=== PATIENT | female | born 1940 | race Caucasian/White ===

== ENCOUNTER → 2024-01-21 15:14 | Outpatient (REF) | payer OTHER, SELFPAY | LOC: HWWDC 15:14 | PROVIDERS: ATTENDING PHYSICIAN Obstetrics & Gynecology; FAMILY PHYSICIAN Family Medicine | DX: Z12.31 Encounter for screening mammogram for malignant neoplasm of breast (principal) | CPT/HCPCS: 77063; 77067 ==

== ENCOUNTER 2024-06-04 08:22 | Inpatient (IN) | payer OTHER, SELFPAY ==
--- NOTE | 2024-04-30 10:37 | CM ---
Addendum entered by Meredith Houser 06/04/24 08:21:
Patient has obtained a rolling walekr and commode.
Original Note:
Patient is scheduled for an elective R TKR on 06/04/24. Spoke with patient prior to surgery via telephone. Introduced role of Orthopedic Navigator. Patient reports that she lives alone in a an independent living apartment at [facility]. She currently
functions independently and uses a cane. She has no other DME. She has never had VN services. PCP is Dr. Yelena Martinez.
Discussed orthopedic program and post surgical plans. Reviewed anticipated length of stay and that goal is for her to return home at discharge. Also reviewed outpatient PT. Patient is in agreement with tentative plan and will go directly to
outpatient PT at [facility]. Her brother will be staying with her when she first goes home.
Patient will complete online education.
Plan: Orthopedic Navigator will remain available to assist with the care of patient and will reassess discharge needs after surgery.
[2024-05-11 12:18] VITALS: BMI 34.1
[2024-05-11 13:40] LABS: Hematocrit 43.4 % (37.0-47.0); Hemoglobin 14.5 g/dL (12.0-16.0); Mean Corp Hgb Conc. 33.4 g/dL (33.0-37.0); Mean Corpuscular Volume 95.8 fL (81.0-99.0); Mean Platelet Volume 11.2 fL (7.4-10.4); Platelet Count 219 10^3/uL (130-400); Red Blood Cell Count 4.53 10^6/uL (4.20-5.40); Red Cell Dist. Width 12.9 % (11.5-14.5); White Blood Cell Count 9.3 10^3/uL (4.8-10.8)
[2024-05-11 14:12] LABS: ALT (SGPT) 18 U/L (0-35); AST (SGOT) 22 U/L (14-36); Albumin 4.6 g/dl (3.5-5.0); Alkaline Phosphatase 60 U/L (38-126); Blood Urea Nitrogen 21 mg/dl (7-17); Calcium 9.8 mg/dl (8.4-10.2); Carbon Dioxide 26 mmol/L (22-30); Chloride 104 mmol/L (98-107); Estimated Creatinine Clearance 77 ml/min; Glucose 122 mg/dl (70-99); Potassium 4.4 mmol/L (3.5-5.1); Sodium 139 mmol/L (135-145); Total Bilirubin 0.6 mg/dl (0.2-1.3); Total Protein 6.8 g/dl (6.3-8.2); eGFR > 60.00
[2024-05-12 09:30] LABS: Glycohemoglobin (HgbA1c) 6.3 % (4.0-5.6)
[2024-06-01 11:35] VITALS: BMI 34.1
[2024-06-04] VITALS (11 sets, daily range): BP systolic 114–168; BP diastolic 57–70; PULSE 62–70; O2SAT 94; BMI 34.1
--- NOTE | 2024-06-04 09:18 | CM ---
Reviewed chart. Patient admitted as planned for elective R TKR. Met with patient at bedside. Confirmed information previously obtained for assessment. Also discussed discharge plans. The plan is for patient to return home at discharge. Her brother
will be staying with her when she goes home. Patient will go directly to outpatient PT and will go to [facility] (script faxed to outpatient PT department at [facility]). She has an appointment scheduled for Saturday, 06/08.
Patient has a rolling walker, two canes, commode and built in shower seat.
Discharge prescriptions were sent to patient's pharmacy ([facility] on [facility] in [place]) prior to surgery.
[2024-06-04] MEDS: CELEBREX 200 MG PO (09:22)
[2024-06-04] MEDS: NORMOSOL-R 1000 IV ×2 (09:22→13:34)
--- NOTE | 2024-06-04 12:34 | W.DS.TRANS ---
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
-
Discharge Instructions:
Sleep Apnea Risk Low
Discharge Diagnosis/Procedures R TKA Dr. Morillo 06/04/24
Diet Diabetic, Carb Controlled
Activity With Walker
Driving Restrictions No driving
Bathing Restrictions OK to Shower
Other Services PT
Instructions:
Stand-Alone Forms: Total Hip/Knee Replacement D/C
Changes to Home Medications: Yes
Discharge Medications:
DC Medications w/original date entered in [facility]
CoQ-10 1 cap PO DAILY 05/28/24
[place] 3 Fish Oil 1 cap PO DAILY 05/28/24
alpha lipoic acid 1 cap PO DAILY 05/28/24
ascorbic acid (vitamin C) 1,000 mg tablet (Vitamin C) 1 g PO DAILY 05/28/24
biotin 1 cap PO DAILY 05/28/24
calcium 600 mg capsule 600 mg PO NOON 05/28/24
cholecalciferol (vitamin D3) 50 mcg (2,000 unit) tablet (Vitamin D3) 50 mcg PO DAILY 05/28/24
cyanocobalamin (vitamin B-12) 500 mcg tablet (Vitamin B-12) 500 mcg PO DAILY 05/28/24
levothyroxine 88 mcg tablet 88 mcg PO DAILY 05/28/24
magnesium 500 mg PO NOON 05/28/24
pumpkin seed extract-soy germ 300 mg capsule (Azo Bladder Control) 1 cap PO BID 05/28/24
rosuvastatin 5 mg tablet 5 mg PO DAILY 05/28/24
turmeric 1 cap PO DAILY 05/28/24
vitamin B complex 1 tab PO DAILY 05/28/24
zinc gluconate 1 tab PO DAILY 05/28/24
Saccharomyces boulardii 250 mg capsule (Florastor) 250 mg PO BID #1 cap 06/04/24
acetaminophen 650 mg tablet,extended release (Tylenol 8 Hour) 1,300 mg (2 x 650 mg) PO TID #0 tabs 06/04/24
aspirin 325 mg tablet 325 mg PO DAILY blood clot prevention #1 tab 06/04/24
cefadroxil 500 mg capsule 500 mg PO BID infection prevention #14 caps 06/04/24
celecoxib 200 mg capsule 200 mg PO DAILY anti-inflammatory #14 caps 06/04/24
docusate sodium 100 mg capsule (Colace) 100 mg PO BID stool softner #1 cap 06/04/24
magnesium hydroxide 400 mg/5 mL oral suspension (Milk of Magnesia) 30 ml PO HS PRN Constipation #1 mL 06/04/24
mupirocin 2 % topical ointment 1 applic topical BID 06/04/24
ondansetron 4 mg disintegrating tablet 4 mg PO Q6H PRN n/v #20 tabs 06/04/24
oxycodone 5 mg tablet 5 mg PO Q6H PRN 1 tab moderate pain, 2 tabs severe pain #30 tabs 06/04/24
sennosides 8.6 mg tablet (Senokot) 17.2 mg (2 x 8.6 mg) PO BID laxative #2 tabs 06/04/24
Home Medication Changes
cefadroxil 500 mg capsule 500 mg PO BID infection prevention #14 caps 06/04/24
celecoxib 200 mg capsule 200 mg PO DAILY anti-inflammatory #14 caps 06/04/24
mupirocin 2 % topical ointment 1 applic topical BID 06/04/24
ondansetron 4 mg disintegrating tablet 4 mg PO Q6H PRN n/v #20 tabs 06/04/24
oxycodone 5 mg tablet 5 mg PO Q6H PRN 1 tab moderate pain, 2 tabs severe pain #30 tabs 06/04/24
Pending Results: No
--- NOTE | 2024-06-04 12:50 | OR.RPT ---
Operative Report
Operative Report
Orthopaedic Surgery Operative Note
DATE OF OPERATION: 06/04/2024
PREOPERATIVE DIAGNOSES: Osteoarthritis, right knee.
POSTOPERATIVE DIAGNOSES: Osteoarthritis, right knee.
OPERATION PERFORMED:
1) Right total knee arthroplasty (CPT 00255)
2) Intraosseous administration of analgesic (CPT 09303)
SURGEON: Darrick Morillo MD
ASSISTANTS: Andrea Noonan PA-C who helped with patient and limb positioning and retraction
ANESTHESIA: Spinal by anesthesia plus intraoperative infusion of morphine into the tibial metaphysis by Dr. Morillo
COMPLICATIONS: None.
ESTIMATED BLOOD LOSS: 20mL
DRAINS: None
TOURNIQUET TIME: 48 minutes.
IMPLANTS:
- Irvin Persona CR Femur, size 8
- Irvin Persona tibia base plate, size D
- Irvin Persona medial constrained articular surface, 10 mm
- All-polyethylene patellar component, size 32
- DJO [place] bone cement
INDICATIONS: The patient presented to my office with debilitating right knee pain due to osteoarthritis. We reviewed the natural history of this problem, as well as the risks, benefits, and alternatives of various treatment options. The patient
exhausted all nonoperative treatment options and wished to proceed with knee replacement surgery. The patient understood the risks which included, but were not limited to, bleeding, infection, failure to relieve pain, more pain than preop, damage to
blood vessels and nerves, need for reoperation, mechanical failure of the implants, wound healing problems, stiffness, instability, blood clot, pulmonary embolism, myocardial infarction, pneumonia, arrhythmia, CVA, and . The patient accepted
these risks and wished to proceed. All questions were answered, and informed consent was obtained.
PROCEDURE IN DETAIL: The patient was identified in the preoperative holding area. The right knee was identified as the operative site. The patient was taken in the operating room and placed in a supine position on the operating table. Spinal
anesthesia was performed. IV antibiotics and tranexamic acid were administered. An SCD was placed on the left lower extremity. A well-padded tourniquet was placed on the proximal thigh. All bony prominences were well padded. The right lower
extremity was prepped and draped in the usual sterile fashion.
We performed a surgical time-out. An interarticular block was performed with local anesthetic with epinephrine. The limb was exsanguinated with an Esmarch bandage, then the tourniquet was inflated to 250 mmHg. I performed interosseous administration
of morphine-saline solution via a Jamshidi style intraosseous needle into the proximal medial tibial metaphysis as described by Fredy Go MD. This was performed to aid in pain control. A midline skin incision was made followed by a medial
parapatellar arthrotomy. A subperiosteal peel was performed on the medial tibia. I excised part of the infrapatellar fat pad to improve our visualization as well as tissue over anterior femur. The patella was everted and the knee was flexed. I
excised the remnants of the anterior and posterior cruciate ligaments as well as tibial and femoral osteophytes with rongeurs.
The knee was flexed, and the extramedullary tibial cutting guide was aligned. [place] was aligned at neutral, rotation was centered on the tibial tubercle, and coronal alignment was aligned with the mechanical axis of the tibia and center of the ankle
joint. The cut height was 10mm off the lateral tibia joint surface. The guide was secured into place. The MCL and LCL were protected. The tibia surface was cut. The cut surface was inspected after removal to ensure appropriate height and slope based
on the preoperative plan. The cut was checked with a drop haris. It was centered nicely at the ankle.
A drill was used to open the femoral canal. The intramedullary distal femoral cutting guide was inserted into the femur. This was set at 5 degrees +0. This was secured into place with three pins. The cut level was checked with an fani wing. The
distal femur was cut through the cutting guide. The IM guide was reinserted to double check that the level of resection was flush and in appropriate alignment.
Cambria�s line and the transepicondylar axis were marked on the femur. The femoral sizing guide was applied to the anterior femur. Pins were inserted, and the 4-in-1 cutting guide was applied and secured into place. The rotation was compared to
Cambria�s line, the transepicondylar axis, and the neutral tibia cut and was found to be appropriate. The width was checked and found to be appropriate and lateralized on the femur. The anterior, posterior, and chamfur cuts were made. A lamina
paint brush maker was used to open the flexion gap, and posterior osteophytes were removed with a curved osteotome. The remnant medial and lateral meniscus were also removed. I prophylactically cauterized the lateral geniculate arteries. A 10mm spacer block
was applied to the flexion gap and was noted to be balanced medially and laterally. The knee was extended, and the block showed symmetric to extension and flexion gaps.
The tibia was exposed and sized. Rotation was set in line with the tibial tubercle and congruent with the femur. The trial was secured into place with two pins. The trial femur was impacted into place, and a trial articular surface was placed. The
knee was taken through range of motion and noted to be stable throughout the arc of motion without gaping or excess tension. In extension, a measured resection of the patella was performed. The patella was sized, and lug holes were drilled. A trial
patella component was applied, and it was noted to track centrally throughout the arc of motion without need for further releases.
The trials were removed. The tibia keel was prepared with the punch and the drill. The bone surfaces were irrigated with sterile saline and dried. The cement was mixed in a vacuum mixer. Cement gun was used to apply cement to the tibial surface and
the undersurface of the tibial implant. Cement was pressurized into the tibial canal and tibia surface. The tibial component was impacted into place. Excess cement was removed. Cement was applied to the femoral surface and the femoral component. The
femoral component was impacted into place, and excess cement removed. A trial articular surface was inserted, and the knee was extended while the cement polymerized. The tourniquet was let down, and meticulous hemostasis was achieved. Dilute
betadine was poured into the wound and allowed to soak for 3 minutes. The knee was irrigated with copious normal saline.
Once the cement was polymerized, the trial articular surface was removed. Any excess cement was removed. The knee was trialed, and the final articular surface was selected and inserted into the tibial locking mechanism. The knee was reduced. A fresh
drape was applied to the surgical field.
The arthrotomy was closed with 0-PDS. Once closed, an interarticular block was performed with local anesthetic with epi. The deep dermal layer was closed with 2-0 PDS, and the subcuticular skin was closed with 3-0 monocryl. A Dermabond Prineo
dressing was applied to the skin in full flexion. Once this was completely dry, a sterile waterproof dressing was applied.
The anesthesia team performed an adductor canal block in the OR. The patient awoke from anesthesia without any difficulties. The sponge and instrument counts were correct x2 at the end of the case.
Dominik Morillo MD
[2024-06-04 13:05] LABS: Glucose - Point of Care 106 mg/dl (70-99)
[2024-06-04] MEDS: ROXICODONE 5 MG PO (13:34)
--- NOTE | 2024-06-04 14:30 | PTCARENOTE ---
pt admitted to room 2101 from PACU at 1350. pt oriented to room, bed controls, call kemp and plan of care with verbalized understanding. assessment as documented. pt c/o runny nose-pox on RA was 94-95%, Oxygen removed. Right leg +sensation,
+movement, +pedal pulse. Right knee surgical dressing clean and dry. brother at bedside. pt offering no c/o pain or discomfort. awaiting therapy. will observe.
[2024-06-04] MEDS: SYNTHROID PO (15:01)
[2024-06-04] MEDS: TORADOL 15 MG IV ×2 (15:32→20:44)
[2024-06-04] MEDS: TYLENOL 650 MG PO ×2 (15:32→20:45)
[2024-06-04] MEDS: CRESTOR PO ×2 (15:32→15:40)
[2024-06-04 15:56] LABS: Glucose - Point of Care 171 mg/dl (70-99)
[2024-06-04] MEDS: ASPIRIN 325 MG PO (17:48)
[2024-06-04] MEDS: ANCEF 5 IV (17:48)
[2024-06-04] MEDS: COLACE 100 MG PO (20:44)
[2024-06-04] MEDS: SENOKOT 17.2 MG PO (20:44)
[2024-06-04] MEDS: BACTROBAN 2% OINTMENT 1 APPLIC NASAL (20:44)
[2024-06-04] MEDS: NEURONTIN 300 MG PO (21:38)
[2024-06-04] MEDS: PEPCID 20 MG PO (21:38)
[2024-06-05] MEDS: TYLENOL 650 MG PO ×3 (00:15→11:18)
[2024-06-05] MEDS: ANCEF 5 IV (01:56)
[2024-06-05 02:53] VITALS: BP 118/54
[2024-06-05] MEDS: TYLENOL PO (03:17)
[2024-06-05] MEDS: SYNTHROID PO (06:11)
[2024-06-05] MEDS: SYNTHROID 88 MCG PO (06:36)
[2024-06-05 07:05] VITALS: BP 156/63
[2024-06-05 08:03] LABS: Glucose - Point of Care 129 mg/dl (70-99)
[2024-06-05] MEDS: CELEBREX 200 MG PO (08:18)
[2024-06-05] MEDS: ASPIRIN 325 MG PO (08:18)
[2024-06-05] MEDS: COLACE 100 MG PO (08:18)
[2024-06-05] MEDS: TORADOL 15 MG IV (08:18)
[2024-06-05] MEDS: SENOKOT 17.2 MG PO (08:18)
[2024-06-05] MEDS: CRESTOR 5 MG PO (08:18)
[2024-06-05] MEDS: BACTROBAN 2% OINTMENT 1 APPLIC NASAL (08:19)
--- NOTE | 2024-06-05 08:55 | CM ---
Addendum entered by SHAZIA Lynn 06/05/24 12:09:
Faxed PT OT ruben to [facility] dept. Met patient and her brother. Brother to take patient home. She feels therapy went well and looks forward to going home today.
Original Note:
Reviewed chart and held rounds with PT and OT. Also spoke to RN. Patient admitted as planned for elective R TKR. Met with patient at bedside. Confirmed information previously obtained for assessment. Also discussed discharge plans. The plan is for
patient to return home at discharge. Her brother will be staying with her when she goes home. Patient will go directly to outpatient PT and will go to [facility]. Refaxed script for PT to [facility] asking if they would like todays PT note faxed to
them. She has an appointment scheduled for Saturday, 06/08.
Patient has a rolling walker, two canes, commode and built in shower seat.
Discharge prescriptions were sent to patient's pharmacy ([facility] on [facility] in [place]) prior to surgery.
[2024-06-05 09:45] VITALS: BP 126/50; PULSE 58; O2SAT 97
[2024-06-05 10:43] VITALS: BP 127/45; PULSE 62; O2SAT 98
[2024-06-05 11:00] VITALS: BP 125/49
[2024-06-05 11:27] LABS: Glucose - Point of Care 118 mg/dl (70-99)
--- NOTE | 2024-06-05 11:34 | W.PN.ORTHO ---
Today's Communication / Plan
-
d/c
Assessment
.
Distal Motor Intact: Yes
Dressing:
Clean, dry and intact.
Plan
.
Surgery / Date: Radha Morillo 06/04/24
DVT Prophylaxis: Aspirin
Activity:
Out of bed.
PT/OT
Discharge Plan: Home w/ Outpatient PT
Subjective
.
.:
Patient resting comfortably.
Vital Signs and Labs
.
Vital Signs and Labs:
Lab Results
05/11/24 12:10
05/11/24 12:10
Temp Pulse Resp BP Pulse Ox
97.6 F 54 18 125/49 95
06/05/24 11:00 06/05/24 11:00 06/05/24 11:00 06/05/24 11:00 06/05/24 11:00
Non-invasive Hgb result: 11.8
Physical Exam
-
HEENT: No pallor, cyanosis, or jaundice. Throat clear.
NECK: Supple. No JVD.
RESPIRATORY: Lungs clear to auscultation.
CVS: S1, S2 normal. RRR.� No murmur, rub or gallop.
ABDOMEN: Soft, non-tender. No distension. BS+/normal.
EXTREMITIES: strength equal, no calf pain with palpation
VICE CHANCELLOR: AOx3. No focal deficits. unit nurse grossly intact
== END 2024-06-05 13:10 | disposition home or self-care (01) | DRG 470 ==
LOC: 2 SOUTH 08:22
PROVIDERS: ADMITTING PHYSICIAN Orthopaedic Surgery; FAMILY PHYSICIAN Family Medicine
PROC: 0SRC0J9 Replacement of Right Knee Joint with Synthetic Substitute, Cemented, Open Approach (ICD-10-PCS; 2024-06-04)
DX: M17.11 Unilateral primary osteoarthritis, right knee (principal); E03.9 Hypothyroidism, unspecified; E78.5 Hyperlipidemia, unspecified; R73.02 Impaired glucose tolerance (oral); R32 Unspecified urinary incontinence; Z79.890 Hormone replacement therapy; R26.2 Difficulty in walking, not elsewhere classified; Z79.899 Other long term (current) drug therapy; Z87.19 Personal history of other diseases of the digestive system; Z87.891 Personal history of nicotine dependence; Z90.89 Acquired absence of other organs
CPT/HCPCS: 36415; 73560; 80053; 82962; 83036; 85027; 87070; 93005; 97110; 97116; 97162; 97166; 97530; 97535; C1713; C1776

== ENCOUNTER → 2024-09-18 14:40 | Outpatient (REF) | payer OTHER, SELFPAY | LOC: HWRAD 14:40 | PROVIDERS: ATTENDING PHYSICIAN Physical Medicine & Rehabilitation; FAMILY PHYSICIAN Family Medicine | DX: M54.59 Other low back pain (principal); W19.XXXA Unspecified fall, initial encounter | CPT/HCPCS: 72114 ==